=== PATIENT | male | born 2000 | race Caucasian/White ===

== ENCOUNTER 2020-07-12 14:09 | Emergency (ER) | payer BC, SELFPAY ==
[2020-07-12 14:10] VITALS: BP 111/79; PULSE 62; RESP 17; TEMP 35.9; O2SAT 98; BMI 22.5
--- NOTE | 2020-07-12 14:19 | CT_ITS ---
STUDY: CT FACIAL BONES WITHOUT CONTRAST REASON FOR EXAM: Male, 19 years old. HIT IN FACE W/ HOCKEY PUCK RADIATION DOSAGE (If Supplied By Facility): CTDIvol = ( 29.38 ) mGy, DLP = ( 584.19 ) mGycm TECHNIQUE: The patient was scanned in a multi detector CT scanner. Sagittal and coronal images were reconstructed. Individualized dose optimization techniques were used for this CT. COMPARISON: None. FINDINGS: Soft tissue swelling overlying the right orbital region as well as the right maxillary region. Normal orbital rodarte and orbital contents. Normal nasal bones and anterior nasal spine. Nondisplaced fracture along the lateral wall of the right maxillary sinus with an air-fluid level. Air-fluid level in the right maxillary sinus. CT/Sinus/Facial Bone IMPRESSION: Nondisplaced fracture involving the lateral wall of the right maxillary sinus with an air-fluid level in the right maxillary sinus. Soft tissue swelling overlying the right orbit and right maxillary region. Electronically Signed: Curtis Michael, at 15:22 EST , Service support ,
--- NOTE | 2020-07-12 14:20 | ED.DCSUM_ITS ---
History of Present Illness Chief Complaint: Laceration Informant: Patient Onset: Today Context: Sudden Onset Timing: Continuous Current Severity: Moderate Maximum Severity: Moderate Narrative: Patient is a 19-year-old male was otherwise healthy the presents to the emergency department with facial injury. 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 He got struck with a hockey puck in the right cheek. He did not lose consciousness. He does admit to some mild nausea and headache. He states that when he bites down, he has a lot of pain in his cheek. He is on no daily medications. He is unsure of his last tetanus. He is otherwise been in his normal state of health. Prior similar symptoms: No Recent Illness/Hospitalization: No Past Medical History - Allergies and Home Meds Allergies/Adverse Reactions: Allergies No Known Allergies Allergy (Verified 07/12/20 14:09) Primary Care Physician: Doni Smyth MD [STAFF PHYSICIAN] - Prior records reviewed: Yes Past Medical History: None Surgical History: noncontributory Review of Systems General: Denies: Chills, Fever, Sweats Eyes: Denies: Visual changes - bilaterally, Diplopia ENT: Denies: Rhinorrhea, Sore throat Cardiovascular: Denies: Chest pain, Palpitations Respiratory: Denies: Dyspnea, Cough, Dyspnea on exertion Gastrointestinal: Denies: Abdominal pain, Nausea, Vomiting, Diarrhea, Melena, Hematochezia Genitourinary: Denies: Dysuria, Hematuria, Frequency Musculoskeletal: Denies: Back pain, Extremity Pain Skin: Denies: Rash, Wounds Neurological: Denies: Headache, Weakness, Numbness Physical Exam Vital Signs/Narrative: Vital Signs Temp Pulse Resp BP Pulse Ox 07/12/20 14:10 96.7 F L 62 17 111/79 98 Inital Vital Signs reviewed: Yes General: Well nourished, Well developed, No Acute Distress Head: Normocephalic, - - Patient has 5 cm full-thickness laceration overlying the right cheek. There is no malocclusion. There is no abnormalities of extraocular motion. Eyes: Perrl, EOMI ENT: Moist mucous membranes, No rhinorrhea Neck: Supple, Nontender Cardiovascular: Regular rate, Regular rhythm, No murmurs Respiratory: No distress, CTA bilaterally, Chest nontender Abdomen: Soft, Nontender, Nondistended, Normal bowel sounds Back: Nontender, Normal Inspection Extremities: Nontender, No edema Skin: Normal color, No rash Neurological: Alert, Oriented x3, Cranial nerves II-XII grossly intact, Normal Strength, Normal Sensation Psychological: Normal affect, Normal Mood Diagnostic/Tx/Re-eval Clinical Impression(s) from Imaging Studies Facial/Sinus 07/12/20 14:19 IMPRESSION: Nondisplaced fracture involving the lateral wall of the right maxillary sinus with an air-fluid level in the right maxillary sinus. Soft tissue swelling overlying the right orbit and right maxillary region. Electronically Signed: Curtis Michael, at 15:22 EST , Service support , - Medical Decision Making The patient presents with facial laceration. He was struck with a hockey puck. He did not lose consciousness. Patient did have a large laceration. He underwent CT of the brain and of the max face. There is evidence of nondisplaced maxillary fracture with air-fluid level. He has no evidence of entrapment. The CT of the brain was unremarkable. The tetanus was updated. His wound was anesthetized and irrigated. It was closed with 9 simple 5-0 interrupted suture. The patient was placed on oral antibiotics given the maxillary sinus fracture with blood. He will be given outpatient follow-up with ENT. He was counseled on concerning symptoms and reasons to return. He will be discharged home. Impression 1. Maxillary sinus fracture 2. Six centimeter facial laceration with repair ED Disposition - Plan for ED Patient: Instructions: ED BLOWOUT FRACTURE, ED Laceration Facial Sutr Tape Prescriptions: Amox/Clavulanate Tablet [Augmentin Tablet] 875 mg PO Q12H #20 tab Prescription Printed Hydrocodone Bitart/Apap 5-325 [Doyle 5MG-325MG] 1 tab PO Q6H PRN PRN 3 Days #10 tab PRN Reason: Pain Prescription Printed Referrals: Doni Smyth MD [STAFF PHYSICIAN] -
--- NOTE | 2020-07-12 14:22 | CT_ITS ---
STUDY: CT BRAIN WITHOUT CONTRAST REASON FOR EXAM: Male, 19 years old. HIT IN FACE W/ HOCKEY PUCK RADIATION DOSAGE (If Supplied By Facility): CTDIvol = ( 44.99 ) mGy, DLP = ( 812.98 ) mGycm TECHNIQUE: Transaxial CT imaging of the brain was performed without administration of intravenous contrast material. Individualized dose optimization techniques were used for this CT. COMPARISON: No relevant priors. FINDINGS: Soft tissue swelling overlying the right periorbital and right premaxillary region. Normal calvarium. Normal size ventricles and extra-axial spaces for the patient''s age. Normal white matter tracts of the cerebral hemispheres. Normal basal ganglia and thalami. Normal brainstem. Normal cerebellum. There is no intracranial hemorrhage. There are no findings of an acute ischemic infarction. Air fluid level is seen in the right maxillary sinus. There is a nondisplaced fracture involving the lateral wall of the right maxillary sinus. A small amount of air is seen in the right infratemporal fossa. CT/Brain/Head without Contrast IMPRESSION: Nondisplaced fracture involving the lateral wall of the right maxillary sinus with an air-fluid level. Preorbital and premaxillary soft tissue swelling on the right side. Electronically Signed: Curtis Michael, at 15:18 EST , Service support ,
[2020-07-12] MEDS: HYDROcodone Bitartrate/Apap 5/325 Tablet PO (14:35)
[2020-07-12] MEDS: Diphth,Pertuss(Acell),Tet Vac 0.5 ML Vial IM (14:35)
[2020-07-12] MEDS: Lidocaine/Epi/Tetracaine 50 ML 1 APPLIC TOPICAL (14:38)
[2020-07-12 15:55] VITALS: BP 141/87; PULSE 86; RESP 16; O2SAT 99
== END 2020-07-12 15:55 | disposition home or self-care (01) ==
LOC: ED 14:41
PROVIDERS: Emergency Provider Emergency Medicine
DX: S01.411A Laceration without foreign body of right cheek and temporomandibular area, initial encounter (principal); S02.40CA Maxillary fracture, right side, initial encounter for closed fracture; Z23 Encounter for immunization; W21.220A Struck by ice hockey puck, initial encounter; Y93.89 Activity, other specified; Y92.89 Other specified places as the place of occurrence of the external cause; Y99.8 Other external cause status
CPT/HCPCS: 12014; 70450; 70486; 90715; 99284; A4216